=== PATIENT | female | born 1995 | race American Indian/Alaskan Native ===

== ENCOUNTER 2017-01-11 14:02 | Emergency (ER) | payer OTHER ==
[2017-01-11 14:43] VITALS: BP 124/82
[2017-01-11] MEDS ORDERED: MOTRIN PO ONE (15:08)
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
== END 2017-01-11 17:06 | disposition home or self-care (01) ==
LOC: ED 14:02
DX: S13.4XXA Sprain of ligaments of cervical spine, initial encounter (principal); S46.912A Strain of unspecified muscle, fascia and tendon at shoulder and upper arm level, left arm, initial encounter; S86.911A Strain of unspecified muscle(s) and tendon(s) at lower leg level, right leg, initial encounter; V49.49XA Driver injured in collision with other motor vehicles in traffic accident, initial encounter; Y93.9 Activity, unspecified; Y92.9 Unspecified place or not applicable; Y99.9 Unspecified external cause status
CPT/HCPCS: 71020; 99283